=== PATIENT | female | born 2005 | race Caucasian/White ===

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

== ENCOUNTER 2023-01-01 12:50 | Emergency (ER) | payer MEDICAID, SELFPAY ==
[2023-01-01 12:54] VITALS: BP 135/75; PULSE 96; RESP 16; TEMP 36.3; O2SAT 98; BMI 21.3
--- NOTE | 2023-01-01 12:54 | ED.GENADULT ---
HPI - General Adult General Stated complaint: Test Time Seen by Provider: 01/01/23 12:52 Source: patient Mode of arrival: ambulatory Limitations: no limitations History of Present Illness HPI narrative: 17-year-old female A1 presents requesting a test, patient had multiple positive home test. Not on control. Sexually active. Not planning . LMP Dec 02 2022. Patient reports intermittent lower abdominal cramping. Denies fevers, chills, nausea, vomiting, headache, vision changes, dizziness, chest pain, shortness of. Not followed by PCP or OBGYN. Miscarriage was around 4 months ago. Related Data Home Medications Medication Instructions Recorded Confirmed prenat.vits,debbie,jkp-[id number]-yijof 1 tab PO DAILY 07/02/22 Previous Rx's Medication Instructions Recorded misoprostol 200 mcg tablet 800 mcg vaginal ONCE 1 day #4 tabs 07/06/22 Allergies Allergy/AdvReac Type Severity Reaction Status Date / Time No Known Allergies Allergy Verified 01/01/23 12:54 Review of Systems Review of Systems: Constitutional : No Weight loss, No Fever, No Chills, No Fatigue, No Malaise ENT/Mouth : No sore throat, No Rhinorrhea Eyes: No Eye Pain, No Swelling, No Redness Cardiovascular : No Chest Pain, No SOB, No Dyspnea on Exertion, No Orthopnea, No Edema, No Palpitations Respiratory : No Cough, No Sputum, No Wheezing Gastrointestinal : No Nausea, No Vomiting, No Diarrhea, No Constipation, No abdominal Pain, No Hematochezia, No Melena Genitourinary : No Dysuria, No Urinary Frequency, No Hematuria, Musculoskeletal : No joint pain, No Myalgias, No Joint Swelling Skin : No Skin Lesions, No rash Neuro : No Weakness, No Numbness, No Dizziness, No Headache Psych : No Anxiety/Panic, No Depression All other systems reviewed and are negative Yes all other systems are reviewed and are negative [facility] Past Medical History Attestation statement: The following information was validated with the patient. Source: old records reviewed and nursing notes reviewed Medical History Anxiety disorder, unspecified Asthma Moderate recurrent major depression Seasonal allergies Sleep disorder Surgical History No history of previous surgery Family History Family History Maternal Aunt Ovarian cancer Thyroid cancer Mother Mental health problem Drug abuse Social History Social History Alcohol intake: current Alcohol intake frequency: does not drink Patient Tobacco Use Status: Never used Tobacco Substance Use Type: Marijuana Gender identity: Female Physical Exam ED Vital Signs: vss Appearance: Alert.? Oriented X3.? No acute distress.? Head: Normocephalic, atraumatic, no step-offs or deformities Eyes: Pupils equal, round and reactive to light.? ENT: Pharynx normal.? Neck: Normal inspection.? Neck supple.? CVS: Normal heart rate and rhythm.? Pulses normal.? Respiratory: No respiratory distress.? Breath sounds normal.? Abdomen: Soft and nontender.? Skin: Skin warm and dry.? Normal skin color.? Normal skin turgor.? Extremities: No lower extremity edema.? No calf ttp. 5/5 strength to bilateral upper and lower extremities Neuro: Oriented X 3.? No motor deficit.? No sensory deficit. CN 2-12 intact Medical Decision Making Medical Decision Making MDM Narrative: 17-year-old female presents requesting test had a positive 1 at home. LMP December 02. Physical exam benign Concerns for possible . Unlikely metabolic derangements. No abdominal pain unlikely acute abdomen, ectopic , threatened Plan urine Differential Diagnosis Differential Diagnoses: The differential diagnosis associated with the presentation includes Concerns for possible . Unlikely metabolic derangements. No abdominal pain unlikely acute abdomen, ectopic , threatened Admission/Observation Consideration of admission/observation: Escalation of care including admission/observation considered Not indicated Core Measures AMI core measures followed: Yes Measure exclusions: not indicated Critical Care Time Critical Care Time Critical Care Time: No Discharge Plan Discharge Clinical Impression: Positive urine test Patient Disposition: Home, Self-Care Instructions: (ED) Additional Instructions: Take your medications as prescribed. If you were prescribed antibiotics today, it is important that you take your medication to their entirety, do not skip any doses, do not finish them early. Follow-up with your primary care provider this week. Follow-up with OBGYN Return to the emergency department with new or worsening symptoms. Such as fevers, chills, chest pain, shortness of breath, nausea, vomiting, dizziness, headache, vision changes, lethargy In case of emergency call 911 Prescriptions: No Action misoprostol 200 mcg tablet 800 mcg vaginal ONCE 1 Days Qty: 4 0RF Rx Instructions: Insaert 800 mcg vaginal dose, 24 hours after Mifepristone dose by mouth prenat.vits,debbie,[id number] Tablet 1 tab PO DAILY Referrals: Physician,Angelina Mon [Primary Care Provider] - 2 days Javad Aranda MD [Physician] - 1 day Stand Alone Forms: Work/School Release
[2023-01-01 13:28] LABS: Appearance Urine Clear; Color Urine Yellow; Glucose Urine UA Negative (Negative); Leukocyte Esterase Urine Negative (Negative); Nitrite Urine Negative (Negative); PH 6.5 (5.0-9.0); Specific Gravity - Urine >= 1.030 (1.005-1.025); UPreg QC Valid YES; Urine Blood Negative (Negative); Urine Ketones Negative (Negative); Urine Pregnancy POSITIVE (NEGATIVE); Urine Protein Negative (Neg-Trace)
[2023-01-01 13:33] LABS: Bacteria Urine None Seen (None Seen); Hyaline Casts Urine 0-2 /LPF (0-2); RBC Urine 0-2 /HPF (0-2); Squamous Epithelial Cell Urine 0-2 /HPF (0-2); WBC Urine 0-5 /HPF (0-5)
== END 2023-01-01 13:31 | disposition home or self-care (01) ==
LOC: HO.ED 13:13
PROVIDERS: Physician Assistant; Emergency Provider Emergency Medicine
DX: Z32.01 Encounter for pregnancy test, result positive (principal)
CPT/HCPCS: 81001; 81025; 99282

== ENCOUNTER → 2023-01-04 08:14 | Outpatient (BNVA) | payer MEDICAID, SELFPAY | PROVIDERS: Visit Provider Advanced Practice Midwife | DX: Z34.90 Encounter for supervision of normal pregnancy, unspecified, unspecified trimester (principal) | CPT/HCPCS: 99212 ==

== ENCOUNTER 2023-04-20 12:21 | Outpatient (REF) | payer MEDICAID, SELFPAY ==
--- NOTE | ~2023-04-20 | XR_ITS ---
EXAMINATION: XR CHEST CLINICAL INFORMATION: Rib pain with sudden onset pleuritic pain on the left COMPARISON: PA and lateral chest 04/16/2018 TECHNIQUE: 2 views of the chest were obtained. FINDINGS: No significant abnormality is noted involving the heart, lungs, mediastinum, bony thorax or soft tissues. XR/XR chest 2V IMPRESSION: Unremarkable examination.
== END 2023-04-20 12:22 | disposition home or self-care (01) ==
LOC: HO.HHCX 12:21
PROVIDERS: Visit Provider Emergency Medicine
DX: R07.81 Pleurodynia (principal)
CPT/HCPCS: 71046

== ENCOUNTER 2023-04-20 12:55 | Emergency (ER) | payer MEDICAID, SELFPAY ==
[2023-04-20 13:42] VITALS: BP 101/65; PULSE 95; RESP 16; TEMP 37.1; O2SAT 99; BMI 22.3
[2023-04-20 14:24] LABS: COVID-19 Test Negative (Negative); IDNOW Serial# 08D9AD1C; IDNOW Serial# BCCEAD1C; Influenza A Negative (Negative); Influenza B2 Negative (Negative)
== END 2023-04-20 17:13 | disposition left against medical advice (07) ==
PROVIDERS: Emergency Provider Emergency Medicine
DX: M79.10 Myalgia, unspecified site (principal); Z20.822 Contact with and (suspected) exposure to COVID-19; Z20.828 Contact with and (suspected) exposure to other viral communicable diseases; Z79.899 Other long term (current) drug therapy
CPT/HCPCS: 87502; 87635; 99281; 99283

== ENCOUNTER 2023-06-12 11:59 | Emergency (ER) | payer MEDICAID, SELFPAY ==
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
[2023-06-12 12:28] VITALS: BP 101/60; PULSE 83; RESP 16; TEMP 37.2; O2SAT 100; BMI 23.0
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
[2023-06-12] MEDS: Acetaminophen 325 MG TABLET 650 MG PO (13:01)
[2023-06-12] MEDS: Ondansetron ODT 4 MG TAB.RAPDIS TRANSLINGU (13:02)
[2023-06-12] MEDS: Cyclobenzaprine HCl 10 MG TABLET PO (13:02)
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
--- NOTE | 2023-06-12 13:36 | PC.NURSE ---
[employer] meeting with patient at this time
[2023-06-12 14:37] LABS: Appearance Urine Cloudy; Color Urine Yellow; Glucose Urine UA Negative (Negative); Leukocyte Esterase Urine Trace (Negative); Nitrite Urine Negative (Negative); Specific Gravity - Urine >= 1.030 (1.005-1.025); UMIC TRIGGER UACC YES; Urine Blood Negative (Negative); Urine Ketones Trace mg/dL (Negative); Urine Protein Trace mg/dL (Neg-Trace)
[2023-06-12 14:42] LABS: Bacteria Urine 1+ (None Seen); Hyaline Casts Urine 0-2 /LPF (0-2); RBC Urine 0-2 /HPF (0-2); WBC Urine 0-5 /HPF (0-5)
[2023-06-12 14:45] LABS: UPreg QC Valid YES; Urine Pregnancy NEGATIVE (NEGATIVE)
[2023-06-12 14:47] VITALS: BP 102/56; PULSE 59; RESP 14; TEMP 36.6; O2SAT 99
[2023-06-12] MEDS: Ibuprofen 400 MG TABLET PO (16:06)
== END 2023-06-12 16:08 | disposition home or self-care (01) ==
PROVIDERS: Emergency Provider Emergency Medicine; PCP Pediatrics
DX: S09.90XA Unspecified injury of head, initial encounter (principal); S00.531A Contusion of lip, initial encounter; M54.2 Cervicalgia; M25.512 Pain in left shoulder; R51.9 Headache, unspecified; Y04.2XXA Assault by strike against or bumped into by another person, initial encounter; Y93.9 Activity, unspecified; Y92.9 Unspecified place or not applicable; Y99.9 Unspecified external cause status; Z79.899 Other long term (current) drug therapy
CPT/HCPCS: 70450; 72125; 73030; 81001; 81025; 99284

== ENCOUNTER 2023-06-15 12:19 | Outpatient (REF) | payer MEDICAID, SELFPAY ==
[2023-06-15 14:18] LABS: Syphilis Screen Nonreactive (Nonreactive)
[2023-06-16 09:08] LABS: HBS Num1 0.96 mIU/mL (0-7.99); HBc Num1 0.12 S/CO (0.00-0.79); HBsAGNum1 0.23 S/CO (0.00-0.99); HIV AB/AG Nonreactive (Nonreactive); HIV Num 1 0.79 S/CO (0.00-0.99); Hepatitis B Core Antibody Nonreactive (Nonreactive); Hepatitis B Surface Antigen Negative (Negative); ~HepC Num1 0.13 S/CO (0.00-0.79); ~Hepatitis B Surface Antibody NONREACTIVE (Nonreactive); ~Hepatitis C Antibody Nonreactive (Nonreactive)
== END 2023-06-15 12:20 | disposition home or self-care (01) ==
LOC: HO.HHCL 12:19
PROVIDERS: Visit Provider Family Medicine
DX: Z11.3 Encounter for screening for infections with a predominantly sexual mode of transmission (principal); Z11.4 Encounter for screening for human immunodeficiency virus [HIV]
CPT/HCPCS: 0353U; 36415; 86704; 86706; 86780; 86803; 87340; 87389

== ENCOUNTER 2023-06-15 16:12 | Outpatient (REF) | payer MEDICAID, SELFPAY ==
[2023-06-16 02:06] LABS: CT PCR NOT DETECTED (Not Detect.); NG PCR NOT DETECTED (Not Detect.)
== END 2023-06-15 16:13 | disposition home or self-care (01) ==
LOC: HO.HHCLNP 16:12
PROVIDERS: Visit Provider Family Medicine
DX: Z11.3 Encounter for screening for infections with a predominantly sexual mode of transmission (principal)
CPT/HCPCS: 0353U

== ENCOUNTER 2023-11-14 15:41 | Outpatient (REF) | payer MEDICAID, SELFPAY ==
[2023-11-14 17:52] LABS: MANUAL DIFF FLAG NO
[2023-11-14 18:28] LABS: Alanine Aminotransferase 10 U/L (0-31); Albumin Level 4.5 g/dL (3.5-5.0); Alkaline Phosphatase 48 U/L (39-117); Anion Gap 13 (12-20); Aspartate Amino Transferase 15 U/L (5-31); Bilirubin Total 0.5 mg/dL (0.0-1.0); Blood Urea Nitrogen 7 mg/dL (9-16); Calcium 9.4 mg/dL (8.4-10.2); Carbon Dioxide 25 mmol/L (22-29); Chloride 108 mmol/L (96-108); Estimated Glomerular Filt Rate > 60; Glucose Random 60 mg/dL (60-115); Potassium 3.7 mmol/L (3.3-5.1); Sodium 142 mmol/L (135-145); Total Protein 7.6 g/dL (6.5-8.0)
[2023-11-14 18:44] LABS: TSH reflex Free T4 1.07 uIU/mL (0.32-4.0)
[2023-11-14 18:48] LABS: Folate 7.9 ng/mL (> or = 4.0); Vitamin B12 367 pg/mL (200-900)
[2023-11-14 19:03] LABS: Basophils Absolute Auto 0.1 X10*3/uL (0.0-0.2); Basophils Percent Auto 1.3 % (0-2); Eosinophils Percent Auto 0.8 % (0-4); Hematocrit 41.9 % (37.0-47.0); Hemoglobin 13.3 g/dl (12.0-16.0); Imm Gran Abs Auto 0.02 X10*3/uL (0.00-0.03); Imm Gran Pct Auto 0.4 % (0.0-0.4); Lymphocytes Absolute Auto 2.3 X10*3/uL (1.2-4.9); Lymphocytes Percent Auto 44.8 % (20-40); Mean Corpuscular HGB Conc 31.7 g/dl (31.0-35.0); Mean Corpuscular Hemoglobin 26.9 pg (27.0-33.0); Mean Corpuscular Volume 84.8 fL (80.0-98.0); Mean Platelet Volume 11.1 fL (9.4-12.3); Monocytes Absolute Auto 0.5 X10*3/uL (0.1-1.2); Monocytes Percent Auto 9.6 % (2-11); Neutrophils Absolute Auto 2.3 x10*3/uL (2.0-8.3); Neutrophils Percent Auto 43.1 % (45-73); Platelet Count 252 X10*3/uL (160-400); Red Blood Count 4.94 X10*6/uL (4.20-5.50); White Blood Count 5.2 X10*3/uL (4.8-10.8)
[2023-11-16 12:18] LABS: RPR Rapid Plasma Reagin NON-REACTIVE (NON-REACTIVE)
[2023-11-16 12:59] LABS: HIV RNA PCR Qn Copies NOT DETECTED copies/mL (NOT DETECTED); HIV RNA PCR Qn Log Copies NOT DETECTED (NOT DETECTED)
[2023-11-16 20:28] LABS: C. trachomatis RNA TMA DETECTED (NOT DETECTED); Candida glabrata RNA NOT DETECTED (NOT DETECTED); Candida species RNA NOT DETECTED (NOT DETECTED); N. gonorrhoeae RNA TMA NOT DETECTED (NOT DETECTED); Trichomonas vaginalis RNA NOT DETECTED (NOT DETECTED)
== END 2023-11-14 15:42 | disposition home or self-care (01) ==
LOC: HO.HHCL 15:41
PROVIDERS: Visit Provider Emergency Medicine
DX: R00.2 Palpitations (principal); Z11.3 Encounter for screening for infections with a predominantly sexual mode of transmission
CPT/HCPCS: 36415; 80053; 81513; 82607; 82746; 84443; 85025; 86592; 87086; 87481; 87491; 87536; 87591; 87661

== ENCOUNTER 2023-11-17 14:31 | Outpatient (REF) | payer MEDICAID, SELFPAY ==
[2023-11-18 08:30] LABS: Hepatitis B Core Antibody Nonreactive (Nonreactive)
[2023-11-18 08:46] LABS: HBS Num1 186.03 mIU/mL (0-7.99); HBc Num1 0.15 S/CO (0.00-0.79); HBsAGNum1 0.26 S/CO (0.00-0.99); Hepatitis B Surface Antigen Negative (Negative); ~HepC Num1 0.15 S/CO (0.00-0.79); ~Hepatitis B Surface Antibody REACTIVE (Nonreactive); ~Hepatitis C Antibody Nonreactive (Nonreactive)
== END 2023-11-17 14:32 | disposition home or self-care (01) ==
LOC: HO.HHCL 14:31
PROVIDERS: Visit Provider Emergency Medicine
DX: A74.9 Chlamydial infection, unspecified (principal)
CPT/HCPCS: 36415; 86704; 86706; 86803; 87340

== ENCOUNTER 2024-03-23 09:04 | Emergency (ER) | payer MEDICAID, SELFPAY ==
--- NOTE | ~2024-03-23 | US_ITS ---
EXAMINATION: US OBSTETRICAL ULTRASOUND CLINICAL INFORMATION: Abdominal pain. Nausea. Beta-hCG March 23, 2024; 49,259 COMPARISON: None available. LMP: 02/02/2020 2.4. Gestational age by maternal dates is 7 weeks 1 day.. Estimated date of delivery by maternal dates is 11/08/2024. TECHNIQUE: Transabdominal imaging. Doppler was utilized. FINDINGS: There is a single intrauterine gestational sac with visible yolk sac, embryo/fetus, and cardiac activity. There is no significant subchorionic hemorrhage or hematoma. HR: 118 beats per minute. CRL (crown rump length): 0.5. cm (6 weeks 3 days +/- 4 days). TOMY (estimated date of delivery): 11/13/2024 +/- 4 days. MATERNAL ADNEXA: The right maternal ovary measures 2.4 x 1.3 x 1.8 cm. The left maternal ovary measures 3.5 x 1.6 x 1.5 cm. 1.1 cm corpus luteum cyst. There is no significant maternal adnexal mass. No maternal pelvic ascites. US/US OB <= 14 weeks fetus IMPRESSION: 1. Single intrauterine gestation with ultrasound gestational age of 6 weeks 3 days +/- 4 days. 2. Estimated date of delivery is 11/13/2024 +/- 4 days. 3. No maternal adnexal mass or pelvic ascites. Electronically signed by: Shabbir Lynch MD 03/23/2024 03:49 PM EDT
[2024-03-23 09:13] VITALS: BP 104/65; PULSE 88; RESP 18; TEMP 36.6; O2SAT 98; BMI 23.0
[2024-03-23 09:39] LABS: MANUAL DIFF FLAG NO
[2024-03-23 09:40] LABS: Basophils Percent Auto 0.7 % (0-2); Eosinophils Absolute Auto 0.1 X10*3/uL (0.0-0.4); Eosinophils Percent Auto 0.9 % (0-4); Hematocrit 38.5 % (37.0-47.0); Hemoglobin 13.2 g/dl (12.0-16.0); Imm Gran Abs Auto 0.02 X10*3/uL (0.00-0.03); Imm Gran Pct Auto 0.4 % (0.0-0.4); Lymphocytes Absolute Auto 2.6 X10*3/uL (1.2-4.9); Lymphocytes Percent Auto 47.2 % (20-40); Mean Corpuscular HGB Conc 34.3 g/dl (31.0-35.0); Mean Corpuscular Hemoglobin 27.4 pg (27.0-33.0); Mean Corpuscular Volume 79.9 fL (80.0-98.0); Mean Platelet Volume 10.4 fL (9.4-12.3); Monocytes Absolute Auto 0.5 X10*3/uL (0.1-1.2); Monocytes Percent Auto 9.4 % (2-11); Neutrophils Absolute Auto 2.3 x10*3/uL (2.0-8.3); Neutrophils Percent Auto 41.4 % (45-73); Platelet Count 274 X10*3/uL (160-400); Red Blood Count 4.82 X10*6/uL (4.20-5.50); Red Cell Distribution Width 12.2 % (11.0-16.0); White Blood Count 5.5 X10*3/uL (4.8-10.8)
[2024-03-23 09:59] LABS: Alanine Aminotransferase 11 U/L (0-31); Albumin Level 4.5 g/dL (3.5-5.0); Alkaline Phosphatase 55 U/L (39-117); Anion Gap 13 (12-20); Aspartate Amino Transferase 15 U/L (5-31); Bilirubin Total 0.9 mg/dL (0.0-1.0); Blood Urea Nitrogen 6 mg/dL (9-16); Calcium 9.7 mg/dL (8.4-10.2); Carbon Dioxide 22 mmol/L (22-29); Chloride 106 mmol/L (96-108); Creatinine Clr Calc Pharmacy 100.3; Estimated Glomerular Filt Rate > 60; Glucose Random 88 mg/dL (60-115); Potassium 3.5 mmol/L (3.3-5.1); Sodium 137 mmol/L (135-145); Total Protein 7.7 g/dL (6.5-8.0)
[2024-03-23 10:10] VITALS: BP 109/77; PULSE 59; RESP 16; O2SAT 100
[2024-03-23 10:27] LABS: HCG Quantitative 49259 mIU/mL
--- NOTE | 2024-03-23 11:38 | ED_ITS ---
HPI - Nausea/Vomiting/Diarrhea General Chief complaint: Nausea/Vomiting/Diarrhea Stated complaint: Not Feeling Well Abd Pain Time Seen by Provider: 03/23/24 11:20 Source: patient Mode of arrival: ambulatory Limitations: no limitations History of Present Illness HPI Narrative: Patient is a 18-year-old female , LMP 02/02/24 who presents to the emergency department who has yet to have OB evaluation, presenting to emergency department for evaluation of bilateral upper abdominal pain/lower pain with nausea and vomiting over the past week she is now experiencing mid lower abdominal pain radiating diffusely across her lower back. States that she took a home test which was positive. She denies any pelvic pain, abnormal vaginal discharge or bleeding. She denies dysuria, hematuria, urinary frequency/urgency/hesitancy. Related Data Home Medications ?Medication ?Instructions ?Recorded ?Confirmed prenat.vits,debbie,[id number] 1 tab PO DAILY 07/02/22 Previous Rx's ?Medication ?Instructions ?Recorded cyclobenzaprine 10 mg tablet 10 mg PO TID PRN muscle spasm #20 06/12/23 tabs ibuprofen 600 mg tablet 600 mg PO Q6H PRN pain #30 tabs 06/12/23 ondansetron 4 mg disintegrating 4 mg PO Q8H PRN nausea and 06/12/23 tablet vomiting #20 tabs cefpodoxime 100 mg tablet 100 mg PO BID #10 tabs 03/23/24 vits 75-iron 28 mg-folic 1 pkg PO DAILY #60 ea 03/23/24 acid 800 mcg-omega3 440 mg oral pack (One Daily ) pyridoxine (vitamin B6) 25 mg 25 mg PO TID PRN nausea and 03/23/24 tablet vomiting #30 tabs Allergies Allergy/AdvReac Type Severity Reaction Status Date / Time No Known Allergies Allergy Verified 03/23/24 09:16 [facility] Past Medical History Medical History Anxiety disorder, unspecified Moderate recurrent major depression Seasonal allergies Sleep disorder Asthma Surgical History No history of previous surgery Family History Family History Maternal Aunt Ovarian cancer Thyroid cancer Mother Mental health problem Drug abuse Social History Social History Alcohol intake: current Alcohol intake frequency: does not drink Patient Tobacco Use Status: Never used Tobacco Substance Use Type: Marijuana Advance Directives: No Advance Directives Information Provided: Yes Do you have a plan to hurt others: No Plan Gender identity: Female Physical Exam 2 Vital Signs: Vital Signs: Last Vital Signs Temp 97.8 F 03/23/24 09:13 Pulse 59 03/23/24 10:10 Resp 16 03/23/24 10:10 BP 109/77 03/23/24 10:10 Pulse Ox 100 03/23/24 10:10 O2 Del Method Room Air 03/23/24 10:10 BMI result Body Mass Index 23.0 Medications Administered Discontinued Medications Generic Name Dose Route Start Last Admin Trade Name Freq PRN Reason Stop Dose Admin Cefuroxime Axetil 250 mg 03/23/24 13:57 03/23/24 14:47 Cefuroxime Axetil 250 Mg Tablet PO 03/23/24 13:58 250 mg ONCE ONE Administration Sodium Chloride 1,000 mls @ 999 mls/hr 03/23/24 11:45 03/23/24 14:24 Ns IV 03/23/24 12:45 Infused .Q1H1M LORELEI Infusion Ondansetron HCl 4 mg 03/23/24 11:36 03/23/24 12:48 Ondansetron Hcl 4 Mg/2 Ml Vial IVPUSH 03/23/24 11:37 4 mg ONCE ONE Administration Medical Decision Making Medical Decision Making [facility] Narrative: Patient is a 18-year-old female , LMP 02/02/24 making TOMY 11/08/24, approximately 6 weeks presenting to the emergency department for evaluation of abdominal pain with nausea vomiting as per HPI. Overall she appears well, nontoxic, afebrile. She is without tachycardia tachypnea or hypoxia. Present who associated shortness of breath or chest pain. No CVA tenderness. Abdomen is soft without rigidity or guarding. Will obtain CBC to evaluate for leukocytosis/ anemia, CMP and lipase to evaluate for abnormal electrolytes /abnormal renal function/ abnormal hepatic/biliary function, pelvic ultrasound and Urinalysis. Patient received 1 L normal saline IV fluid, Differential Diagnosis Differential Diagnoses: The differential diagnosis associated with the presentation includes (Nausea and vomiting in 1st trimester , urinary tract infection, pyelonephritis, viral syndrome. Suspect less likely to be ovarian torsion, TOA, ruptured ovarian cyst) Admission/Observation Consideration of admission/observation: Escalation of care including admission/observation considered Lab Data [facility]DM Lab Attestation statement: I reviewed the patient's lab results. CBC is without leukocytosis anemia or thrombocytopenia. No electrolyte derangement. No CHRISTIANA. LFTs lipase within normal range. HCG 49,259. Urinalysis concerning for UTI. 03/23/24 09:24 03/23/24 09:24 Labs: Lab Results 03/23/24 03/23/24 Range/Units 09:24 13:38 WBC 5.5 (4.8-10.8) X10*3/uL RBC 4.82 (4.20-5.50) X10*6/uL Hgb 13.2 (12.0-16.0) g/dl Hct 38.5 (37.0-47.0) % MCV 79.9 L (80.0-98.0) fL MCH 27.4 (27.0-33.0) pg MCHC 34.3 (31.0-35.0) g/dl RDW 12.2 (11.0-16.0) % Plt Count 274 (160-400) X10*3/uL MPV 10.4 (9.4-12.3) fL Immature Gran % (Auto) 0.4 (0.0-0.4) % Neut % (Auto) 41.4 L (45-73) % Lymph % (Auto) 47.2 H (20-40) % Isabella % (Auto) 9.4 (2-11) % Eos % (Auto) 0.9 (0-4) % Baso % (Auto) 0.7 (0-2) % Lymph # (Auto) 2.6 (1.2-4.9) X10*3/uL Isabella # (Auto) 0.5 (0.1-1.2) X10*3/uL Eos # (Auto) 0.1 (0.0-0.4) X10*3/uL Baso # (Auto) 0.0 (0.0-0.2) X10*3/uL Abs Immat Gran (auto) 0.02 (0.00-0.03) X10*3/uL Absolute Neuts (auto) 2.3 (2.0-8.3) x10*3/uL Absolute Nucleated RBC 0.000 (0.0-0.012) X10*3/uL Nucleated RBC % (auto) 0.0 (0.0-0.2) /100WBC Sodium 137 (135-145) mmol/L Potassium 3.5 (3.3-5.1) mmol/L Chloride 106 (96-108) mmol/L Carbon Dioxide 22 (22-29) mmol/L Anion Gap 13 (12-20) BUN 6 L (9-16) mg/dL Creatinine 0.74 (0.5-1.4) mg/dL Estim Creat Clear Calc 100.3 Estimated GFR > 60 Random Glucose 88 (60-115) mg/dL Calcium 9.7 (8.4-10.2) mg/dL Total Bilirubin 0.9 (0.0-1.0) mg/dL AST 15 (5-31) U/L ALT 11 (0-31) U/L Alkaline Phosphatase 55 (39-117) U/L Total Protein 7.7 (6.5-8.0) g/dL Albumin 4.5 (3.5-5.0) g/dL Lipase 10 (8-78) U/L Beta HCG, Quant 66614 mIU/mL Urine Color Dark Yellow Urine Appearance Cloudy Urine pH 6.5 (5.0-9.0) Ur Specific [place] >= 1.030 H (1.005-1.025) Urine Protein 30 (1+) H (Neg-Trace) mg/dL Urine Glucose (UA) Negative (Negative) mg/dL Urine Ketones >=160 (Negative) mg/dL Urine Blood Negative (Negative) Urine Nitrite Negative (Negative) Ur Leukocyte Esterase Small (1+) H (Negative) Urine RBC 0-2 (0-2) /HPF Urine WBC 11-20 H (0-5) /HPF Ur Squamous Epith Cells >20 (0-2) /HPF Urine Bacteria 4+ (None Seen) Hyaline Casts 0-2 (0-2) /LPF Independent Interpretation I performed an independent interpretation of an: Ultrasound (Single IUP) Radiology Impression Discussion of test interpretation with radiology: I have reviewed the radiologist's reading. Radiologist Impression: US/US OB <= 14 weeks fetus IMPRESSION: 1. Single intrauterine gestation with ultrasound gestational age of 6 weeks 3 days +/- 4 days. 2. Estimated date of delivery is 11/13/2024 +/- 4 days. 3. No maternal adnexal mass or pelvic ascites. External Record Review External record reviewed: Outpatient record Discharge Plan Discharge Clinical Impression: Nausea and vomiting during , Urinary tract infection Patient Disposition: Home, Self-Care Instructions: Nausea and Vomiting in (ED), Urinary Tract Infection in (ED) Additional Instructions: Prescription for antibiotic was sent to pharmacy for treatment of urinary tract infection. Please complete the entire course. Take vitamin daily. Vitamin B6/prior toxin can be taken 3 times daily as needed for nausea and vomiting and . Please establish care with an OB doctor. Based on your last menstrual period, your estimated due date is 11/08/24 Prescriptions: New One Daily [id number] mg-mcg-mg combo pack 1 pkg PO DAILY Qty: 60 0RF pyridoxine (vitamin B6) 25 mg tablet 25 mg PO TID PRN (Reason: nausea and vomiting) Qty: 30 0RF cefpodoxime 100 mg tablet 100 mg PO BID Qty: 10 0RF Rx Instructions: must administer with a meal/food No Action cyclobenzaprine 10 mg tablet 10 mg PO TID PRN (Reason: muscle spasm) Qty: 20 0RF ibuprofen 600 mg tablet 600 mg PO Q6H PRN (Reason: pain) Qty: 30 0RF ondansetron 4 mg tablet,disintegrating 4 mg PO Q8H PRN (Reason: nausea and vomiting) Qty: 20 0RF prenat.vits,debbie,[id number] Tablet 1 tab PO DAILY Discharge Date/Time: 03/23/24 15:11 Print Language: Maldivian
[2024-03-23 11:55] LABS: Lipase 10 U/L (8-78)
[2024-03-23] MEDS: 0.9 % Sodium Chloride 1,000 ML 999 ML IV (12:48)
[2024-03-23] MEDS: ondansetron HCL 4 MG/2 ML VIAL IVPUSH (12:48)
[2024-03-23 13:45] LABS: Appearance Urine Cloudy; Color Urine Dark Yellow; Glucose Urine UA Negative (Negative); Leukocyte Esterase Urine Small (1+) (Negative); Nitrite Urine Negative (Negative); PH 6.5 (5.0-9.0); Specific Gravity - Urine >= 1.030 (1.005-1.025); UMIC TRIGGER UACC YES; Urine Blood Negative (Negative); Urine Ketones >=160 mg/dL (Negative); Urine Protein 30 (1+) mg/dL (Neg-Trace)
[2024-03-23 13:50] LABS: Bacteria Urine 4+ (None Seen); Hyaline Casts Urine 0-2 /LPF (0-2); RBC Urine 0-2 /HPF (0-2); Squamous Epithelial Cell Urine >20 /HPF (0-2); UACC Culture Trigger YES
[2024-03-23] MEDS: cefuroxime axetiL 250 MG TABLET PO (14:47)
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
== END 2024-03-23 15:11 | disposition home or self-care (01) ==
PROVIDERS: Nurse Practitioner Family; Physician Assistant Medical; Emergency Provider Emergency Medicine Emergency Medical Services
DX: O21.9 Vomiting of pregnancy, unspecified (principal); O23.41 Unspecified infection of urinary tract in pregnancy, first trimester; N39.0 Urinary tract infection, site not specified; Z3A.01 Less than 8 weeks gestation of pregnancy
CPT/HCPCS: 36415; 76801; 80053; 81001; 83690; 84702; 85025; 87086; 96361; 96374; 99283; 99284; J2405

== ENCOUNTER 2025-02-21 11:15 | Outpatient (REF) | payer MEDICAID, SELFPAY ==
--- OUTSIDE RECORDS SUMMARY | 2025-02-21 11:57 | XMS_ITS | Clinical Summary ---
Author Organization [email or web address] Address [address] [place] [address] Care Team Providers Care Gravity Manager Name Role Phone Maggie Hinojosa NP Primary Care Provider [phone] Allergies No known active allergies Medications Acetaminophen 500 MG capsule Take one to two tablets as needed for fever or pain every 6 hours 30 capsule 3 Active Drospirenone 4 MG tablet Take 4 mg by mouth. 3 Active SM Sleep Aid 25 MG tablet Take 25 mg by mouth if needed. 3 Active albuterol (Proventil HFA) 108 (90 Base) MCG/ACT inhaler Inhale 90 puffs every 4 (four) hours if needed. 2 Active amitriptyline (Elavil) 25 MG tabletIndication s:Nonintractable headache, unspecified chronicity pattern, unspecified headache type Take 1 tablet (25 mg) by mouth at bedtime. 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 Assessment & Plan (11/22/2023 10:48 PM EDT): -patient denies all other symptoms that may suggest thyroid dysfunction -will trial Drysol every other night for 1 week then increase spacing of application Encounter for immunization 08/26/2023 Encounter for test, result positive Assessment & Plan (06/30/2023 10:06 AM EST): -POCT ordered to confirm at home positive test -LMP 05/23/2023 Abscess of skin and subcutaneous tissue 06/30/20 Assessment & Plan (06/30/2023 10:07 AM EST): -recurrent -referral to general surgery placed for drainage and further intervention Sleep disturbance 06/30/2023 Assessment & Plan (06/30/2023 10:05 AM EST): -sleep hygiene measures reviewed: keep a consistent bed and awakening time; avoid coffee, caffinated drink or foods right before bed; avoid looking at phone or TV 30 min before bed; engage in daily physical activity 4-6 hrs before bed; keep the place where you sleep quiet and dark use a white noise machine or ear plugs to block out sound if needed -patient advised to sleep with cell phone outside her room; to prevent sound- wave distrubance. -gentle stretching/ meditate before bed -melatonin rx sent to pharmacy -f/u in 1 month Routine screening for STI (sexually transmitted infection) 06/16/2023 Assessment & Plan (06/16/2023 9:45 PM EST): -r/o STI -cloudy urine. Negative POCT urine dipstick Post-traumatic headache, not intractable 023 Assessment & Plan (11/22/2023 10:46 PM EDT): -likely the cause of her isolated unilateral weakness and blurred vision -medication options limited secondary to -take tylenol as needed -advised to initiate vitamins as Riboflavin supplementation may assist with symptoms -advised increased fluids, timely food consumption, limit noise exposure -maintain a diary of symptoms -follow-up 2 months via tele-visit Assessment & Plan (06/30/2023 10:04 AM EST): -headaches may be due to acute onset of insomnia as well -did not take amitriptyline prescribed at last visit -shared decision making surrounding medication tx as patient is presumed to be . -take tylenol for headache, maintain headache diary, avoid caffeine, increase fluid intake, engage in physical activity -f/u in 1 month Assessment & Plan (06/16/2023 9:39 PM EST): -likely concussion following head trauma -no relief from motrin -trial amitriptyline 25 mg daily -continue flexeril as prescribed for body aches -continue zofran for nausea -get a lot of rest, limit all activities that require a lot of thinking, increase fluid intake and maintain a balanced diet to avoid hypoglycemia -gradually return to regular daily activities as symptoms improve -report to the ED immediately if headache worsens, develop repeated vomiting, seizures, neck pain, increasing confusion, loss of consciousness, limb weakness/numbness, slurred speech or disorientation. -return to work 06/20 with restrictions and half day schedule per [facility]'s CROW care plan. Documentation provided -f/u in 2 weeks Anxiety 06/15/2023 06/15/2023 Depressive disorder 06/15/2023 06/15/2023 Mild persistent asthma, uncomplicated 04/20/2023 Encounters Date Type Department Care Team Description 02/21/2025 Telephone [facility] [address] [place] [phone] Maggie Hinojosa NP Communication (PT requesting tdap for upcoming job.) 01/29/2025 Patient Outreach [address] [phone] Maggie Hinojosa NP Care Coordination ([facility]/BONNY Palomares#6-ADT outreach-Case closed-Unable to reach) 12/27/2024 Patient Outreach [address] [phone] Maggie Hinojosa NP Care Coordination ([facility]ON[facility] Palomares#5- ADT Outreach-Number disconnected) 11/27/2024 Patient Outreach [address] [phone] Maggie Hinojosa NP Care Coordination ([facility]/BONNY Palomares#4- ADT Outreach-LVM) from Last 3 Months Immunizations Immunization Administration Dates Next Due DTaP 05/17/2007 DTaP, 5 pertussis antigens 11/17/2004,,2003,07/17 HPV 9-Valent 11/11/2015,07/01/2015,04/29/2015 Hep A, ped/adol, 2 dose 06/18/2013,01/19/2011 Hep B, Adolescent or Pediatric 02/12/2004,2002,2003 HepB-CpG 09/15/2023 Hib (HbOC) 08/21/2004, 4,2003,07/17 IPV 05/17/2007, 4,2003,07/17 Influenza injectable quadriv alent preservative free 08/19/2023,04/06/2022,10/04/2019,07/24,05/12/2018,09/14/2016,04/29/2015 Influenza, IIV3, injectable 05/31/2008, 7,08/21/2004 Influenza, Split (incl. sergey fied surface antigen) 06/18/2013 MMR 05/17/2007,05/15/2004 Meningococcal MCV4P ACYW-135 04/06/2022,04/29/20 15 Pneumococcal Conjugate PCV 7 08/21/2004, 02/12/2004,2003,07/17 Rabies, intramuscular 11/20/2018 Tdap 01/07/2020,04/29/2015 Varicella 05/17/2007,05/15/2004 Social History Tobacco Use Types Packs/Day Years Used Date Smoking Tobacco: Never Passive Smoke Exposure: Never Smokeless Tobacco: Never Tobacco Cessation:Counseling Given: Not Answered Alcohol Use Standard Drinks/Week Comments Never 0 (1 standard drink = 0.6 oz pur e alcohol) Depression Answer Date Recorded Patient Health Questionnaire-9 Score 0 06/29/2023 Patient Health Questionnaire-9 Score 0 06/29/2023 Last PHQ-9: Questionnaire Data Not on file 1 08/30/2022 Housing Stability Answer Date Recorded What is your housing situation today? I have [place] 06/29/[address] you li ve. Do you have problems with any of the following? None of the above 06/29/2023 Food Insecurity Answer Date Recorded Within the past 12 months, y ou worried that your food would run out before you got money to buy more: Sometimes True 2023 Within the past 12 months,th e food you bought just didn't last and you didn't have enough money to get more: Sometimes True 12/14/2023 Transportation Answer Date Recorded In the past 12 months, has l ack of transportation kept you from medical appts, meetings, work or from getting things needed for daily living? No 06/29/2023 Utilities Answer Date Recorded In the past 12 months, has t he electric, gas, oil or water company threatened to shut off services in your home? No 06/29/2023 Depression Answer Date Recorded Patient Health Questionnaire-2 Score 0 06/29/2023 Comments Unknown Sex and Gender Information Value Date Recorded Sex Assigned at Female 05/17/2022 10:19 AM EDT Legal Sex Female 10:19 AM EDT Gender Identity Female 05/17/2022 10:19 AM EDT Sexual Orientation Don't know 05/17/2022 10 :19 AM EDT Last Filed Vital Signs Vital Sign Reading Time Taken Comments Blood Pressure 109/67 11/17/2023 2:05 PM EDT Pulse 64 11/17/2023 2:05 PM EDT Temperature 36.8 C (98.2 F) 11/17/2023 2:05 PM EDT Respiratory Rate 17 11/17/2023 2:05 PM EDT Oxygen Saturation 99% 11/17/2023 2:05 PM EDT Inhaled Oxygen Concentration - - Weight 63 kg (139 lb) 11/17/2023 2:05 PM EDT Height 161.3 cm (5' 3.5 ) 08/19/2023 3:27 PM EST Body Mass Index 24.24 08/19/2023 3:27 PM EST Plan of Treatment Upcoming Encounters Date Type Department Care Team (Late st Contact Info) Description 02/28/2025 1:00 PM EDT Office Visit [facility] [address], [place] [phone] Chana Rebollar CNP [address], [place] [phone] Health Maintenance Due Date Last Done Comments Disability Screening 2003 Alcohol/Substance Use Screening 2015 Family Planning (PISQ) 2018 Meningococcal B Vaccine (1 of 2 - Standard) 2019 Pneumococcal Vaccine: Pediatrics (0 to 5 Years) and At-Risk Patients (6 to 49) Years (1 of 2 - PCV) 2022 08/21/2004, 02/12/2004, 2003, Additional history exists COVID-19 Vaccine ( - season) 2024 09/15/2023, 12/16/2021, 12/13/2020, Additional history exists Pap Smear 2024 Depression Screening 06/29/2024 06/29/2023, 06/29/20 Chlamydia and Gonorrhea Screening 11/13/2024 11/14/2023, 06/15/2023, 07/02/2022, Additional history exists SDOH Screening 12/13/2024 12/14/2023 Influenza Vaccine (#1) 2025 , 05/09/2024, 08/19/2023, Additional history exists Tobacco Screening 04/05/2025 04/05/2024 DTaP/Tdap/Td Vaccines (9 - Td or Tdap) 08/17/2034 08/17/2024, 01/07/2020, 04/29/2015, Additional history exists Zoster Vaccines (1 of 2) 2053 RSV Patients and Patients Aged 60 years or older (1 - 1-dose 75+ series) 2078 HIB Vaccines Completed 08/21/2004, 10/17, 2003, Additional history exists IPV Vaccines Completed 05/17/2007, 01/16, 2003, Additional history exists Hepatitis A Vaccines Completed 06/18/2013, 01/20/20 11 HPV Vaccines Completed 11/11/2015, 06/17, 04/29/2015 Meningococcal Vaccine Completed 04/06/2022, 015 Hepatitis B Vaccines Completed 09/15/2023, 02/12/2004, 2003, Additional history exists HIV Screening Completed 11/14/2023, 05/19, 03/18/2022, Additional history exists Hepatitis C Screening Completed 11/17/2023 , 06/15/2023, 03/18/2022, Additional history exists RSV under 20 months Aged Out No longe r eligible based on patient's age to complete this topic Rotavirus Vaccines Aged Out No longer eligible based on patient's age to complete this topic Procedures Procedure Name Priority Date/Time Associated Diagnosis Comments HEPATITIS C AB W/REFL TO HCV RNA, QN, PCR Routine 11/17/2023 2:32 PM EDT Chlamydia infection HIV 1 RNA, QUANTITATIVE REAL TIME PCR Routine 11/14/2023 3:43 PM EDT Routine screening for STI (sexually transmitted infection) SURESWAB(R) ADVANCED VAGINITIS PLUS, TMA Routine 11/14/2023 3:12 PM EDT Routine screening for STI (sexually transmitted infection) from Last 3 Months or Most Recently Relevant to Health Maintenance Results * Hepatitis C Antibody with Reflex to HCV, RNA, Quantitative, Real-Time PCR (11/17/2023 2:32 PM EDT) Hepatitis C Antibody Nonreactive Nonreactive [facility] Comment:Antibodies to HCV no t detected; does not exclude early acuteHCV infection. Blood Venous blood specimen / Unknown 11/17/2023 2:32 PM EDT 11/17/2023 4:10 PM EDT us Chidi Sapp MD LAB BLOOD ORDERABLES Final Resul t [facility] [address] [place] [phone] * HIV-1 RNA, Quantitative, Real-Time PCR (11/14/2023 3:43 PM EDT) HIV RNA PCR Qn Copies NOT DETECTED NOT DETECTED copies/mL [facility] HIV RNA PCR Qn Log Copies NOT DETECTED NOT DETECTED [facility] Comment:Result Units: Log co pies/mLThis test was performed using Real-Time Polymerase ChainReaction.Reportable Range: 20 copies/mL to 10,000,000 copies/mL(1.30 log copies/mL to 7.00 log copies/mL).THIS TEST WAS PERFORMED AT:[facility] [address] [phone] FAIRCHILD MD Blood Venous blood specimen / Unknown 11/14/2023 3:43 PM EDT 11/14/2023 5:48 PM EDT Temi Best DIRECTOR OF MATERIALS LAB BLOOD ORDERABLES Final Res ult [facility] [address] [place] [phone] * (ABNORMAL) SureSwab?? Advanced Vaginitis Plus, TMA (11/14/2023 3:12 PM EDT) Pathologist [facility] Ref Lab DETECTED(A ) NOT DETECTED [facility] Comment:If results do not co rrelate with clinical findings,testing using an alternate molecular target whichamplifies different genetic sequences can beperformed on the same sample for result confirmationwithin 7 days of sample receipt or per performinglaboratory specimen retention policy. Alternatetarget testing is available; 36090 (C. trachomatis)or 78396 (N. gonorrhoeae). NG Ref Lab NOT DETECTED NOT DETECTED [facility] Comment:For additional infor joey, please refer [email or web address]://education.[email or web address]/faq/[email or web address](This link is being provided for information/educational purposes only.)THIS TEST WAS PERFORMED AT:[facility] [facility] [place] [phone] FAIRCHILD MD SureSwab 9R) ADV Bacterial Vaginosis (BV), TMA POSITIVE(A ) NEGATIVE [facility] Britney Species NOT DETECTED NOT DETECTED [facility] Britney glabrata NOT DETECTED NOT DETECTED [facility] Comment:Britney species C. a lbicans, C. tropicalis,C. parapsilosis, and/or C. dubliniensis can be detected,but not differentiated, in the Britney spp. result. Trichomonas vaginalis (TV), TMA NOT DETECTED NOT DETECTED [facility] Swab Vaginal structure / Unknown 11/14/2023 3:12 PM EDT 11/14/2023 7:46 PM EDT us Temi Best DIRECTOR OF MATERIALS LAB BODY FLUIDS AND STOOLS ORD ERABLES Final Result [facility] [address] [place] [phone] from Last 3 Months or Most Recently Relevant to Health Maintenance Insurance [employer] C3 Care Teams Gravity Manager Relationship Specialty Start Date End Date Maggie Hinojosa NP [address] [place] [address] PCP - General Family Medicine 05/12/23
--- OUTSIDE RECORDS SUMMARY | 2025-02-21 11:57 | XMS_ITS | Clinical Summary ---
Author Organization [facility] Address [address] [place] [address] Care Team Providers Care Youth Manager Name Role Phone Unavailable Primary Care Provider Unavailabl e Social History Tobacco Use Types Packs/Day Years Used Date Smoking Tobacco: Never Assessed Comments Unknown Sex and Gender Information Value Date Recorded Sex Assigned at Not on file Legal Sex Female 5:07 AM EST Gender Identity Not on file Sexual Orientation Not on file Plan of Treatment Health Maintenance Due Date Last Done Comments Gonorrhea/Chlamydia Screening 2003 HPV Vaccines (1 - 3-dose series) 2018 Meningococcal B Vaccine (1 o f 2 - Standard) 2019 DTaP,Tdap,and Td Vaccines (1 - Tdap) 2022 Hepatitis B Vaccines (1 of 3 - 19+ 3-dose series) 2022 COVID-19 Vaccine (1 - 2023-2 5 season) 2024 Cervical Cancer Screening: P ap Smear 2024 Depression Screening 07/18/2024 Influenza Vaccine (#1) 2025 HIB Vaccines Aged Out No longer eligi ble based on patient's age to complete this topic Hepatitis A Vaccines Aged Out No long er eligible based on patient's age to complete this topic IPV Vaccines Aged Out No longer eligi ble based on patient's age to complete this topic MMR Vaccines Aged Out No longer eligi ble based on patient's age to complete this topic Meningococcal ACWY Vaccine Aged Out N o longer eligible based on patient's age to complete this topic Pneumococcal Vaccine: Pediat rics (0 to 5 Years) and At-Risk Patients (6 to 49 Years) Aged Out No longer eligible b ased on patient's age to complete this topic RSV Immunization Patients Un kofi 20 months Aged Out No longer eligible b ased on patient's age to complete this topic Varicella Vaccines Aged Out No longer eligible based on patient's age to complete this topic
--- OUTSIDE RECORDS SUMMARY | 2025-02-21 11:57 | XMS_ITS | Encounter Summary ---
Author Organization [facility] Address [address] [place] [address] Phone Care Team Providers Care Ripsawyer Name Role Phone Viviana Aleman MD Primary Care Provider [phone] Encounter Details Date Type Department Care Team (Late st Contact Info) Description 03/03/2017 Conversion Encounter [facility] [address] [place] [address] Social History Tobacco Use Types Packs/Day Years Used Date Smoking Tobacco: Never Assessed Comments Unknown Sex and Gender Information Value Date Recorded Sex Assigned at Not on file Legal Sex Female 4:16 PM EDT Gender Identity Not on file Sexual Orientation Not on file documented as of this encounter Plan of Treatment Not on file documented as of this encounter Visit Diagnoses Not on filedocumented in this encounter Care Teams Ripsawyer Relationship Specialty Start Date End Date Viviana Aleman MD [address] [place] [address] PCP - General 02/25/17 12/30/22 documented as of this encounter
[2025-02-24 16:28] LABS: TS Negative Control Passed; TS Panel A 3; TS Panel B 1; TS Positive Control Passed; TSpotTB Negative (Negative)
== END 2025-02-21 11:16 | disposition home or self-care (01) ==
LOC: HO.HHCL 11:15
PROVIDERS: PCP Nurse Practitioner; Visit Provider Nurse Practitioner
DX: Z11.1 Encounter for screening for respiratory tuberculosis (principal)
CPT/HCPCS: 36415; 86481